=== PATIENT | male | born 1970 | race Caucasian/White ===

== ENCOUNTER 2021-10-02 22:13 | Emergency (ER) | payer SELFPAY ==
[~2021-10-02] VITALS: Ht 182.9 cm; Wt 77.1 kg
--- NOTE | 2021-10-02 22:33 | NUR ---
[id number] FROM THE STREETS FOR ETOH "FOUND ON NEIGHBORS LAWN SLEEPING". PATIENT ALERT AND ORIENTED X2. PATIENT IN BED 14 AWAITING MD MAHER.
--- NOTE | 2021-10-02 23:46 | NUR ---
pt to ct on [address]
--- NOTE | 2021-10-03 03:24 | NUR ---
PT AWOKEN. AMBULATORY ON STEADY GAIT. DENIES ANY SUICIDAL NOR HOMICIDAL IDEATION. MADE AWARE.
--- NOTE | 2021-10-03 03:26 | NUR ---
Patient discharged to home in stable condition. Written and verbal after care instructions given. Patient verbalizes understanding of instruction. Pt ambulatory with a steady gait
[2021-10-03 03:27] VITALS: BP 135/82
== END 2021-10-03 03:28 | disposition home or self-care (01) ==
LOC: ER 22:19
DX: F10.129 Alcohol abuse with intoxication, unspecified (principal); R41.82 Altered mental status, unspecified; Y90.9 Presence of alcohol in blood, level not specified
CPT/HCPCS: 70450-TC; 82962-TC